=== PATIENT | male | born 1985 | race Two or more races ===

== ENCOUNTER 2016-07-12 14:16 | Emergency (ER) | payer SELFPAY ==
[~2016-07-12] VITALS: Ht 177.8 cm; Wt 74.8 kg
[2016-07-12] MEDS ORDERED: IV NORMAL SALINE 1000ML BAG 1,000 ML IV SCH (16:12)
--- NOTE | 2016-07-12 16:20 | PHYS DOC ---
Past Medical History Past Medical History: Other Additional Past Medical Histor: "SEVERE HEADACHES" Past Surgical History: No Surgical History Alcohol Use: Occasionally Drug Use: None Adult General Chief Complaint Chief Complaint: Neck Pain HPI HPI Patient is a 30 year old male who presents with complaint of neck pain, headache, and temporary loss of vision in right eye. Patient states that this started approximately 12:30 today. Patient states he lost vision for approximately 1 hour. Patient denies darkening of vision but states that he was unable to see any detail out of his right eye. The patient states that currently his vision loss has resolved. Patient has been having pain along the right side of his neck as well as right-sided headache. Patient states that he has had history of headaches and has followed up with a neurologist at [facility]. Patient states that he had an MRI in December 2015 which showed "brain damage" of the right cortex. Patient is unable to identify any causative agent for this and he states that the neurologist did not tell him what caused this. Patient has not had any fevers. Patient had associated nausea but no vomiting with his headache and neck pain. Review of Systems Review of Systems Constitutional: Denies fever or chills [] Eyes: Vision loss now resolved, denies redness or eye pain [] HENT: Denies nasal congestion or sore throat [] Respiratory: Denies cough or shortness of breath [] Cardiovascular: No additional information not addressed in HPI [] GI: Denies abdominal pain, nausea, vomiting, bloody stools or diarrhea [] : Denies dysuria or hematuria [] Musculoskeletal: Neck pain [] Integument: Denies rash or skin lesions [] Neurologic: Headache, left arm numbness currently resolved. [] Current Medications Current Medications Current Medications Medications (Trade) Dose Ordered Sig/Nuvia Start Time Stop Time Status Last Admin Dose Admin Sodium Chloride (Iv Sodium Chloride 0.9% 1000ml Bag) 1,000 ml @ 1,000 mls/hr Q1H 07/12/16 16:12 07/12/16 17:11 DC 07/12/16 16:32 1,000 MLS/HR Allergies Allergies Allergies Coded Allergies Type Severity Reaction Last Updated Verified No Known Drug Allergies 07/12/16 No Physical Exam Physical Exam Constitutional: Well developed, well nourished, no acute distress, non-toxic appearance. [] HENT: Normocephalic, atraumatic, bilateral external ears normal, oropharynx moist, no oral exudates, nose normal. [] Eyes: PERRLA, EOMI, conjunctiva normal, no discharge. [] Neck: Normal range of motion, no tenderness, supple, no stridor. [] Cardiovascular:Heart rate regular rhythm, no murmur [] Lungs & Thorax: Bilateral breath sounds clear to auscultation [] Abdomen: Bowel sounds normal, soft, no tenderness, no masses, no pulsatile masses. [] Skin: Warm, dry, no erythema, no rash. [] Back: No tenderness, no CVA tenderness. [] Extremities: No tenderness, no cyanosis, no clubbing, ROM intact, no edema. [] Neurologic: Alert and oriented X 3, normal motor function, normal sensory function, no focal deficits noted. [] Psychologic: Affect normal, judgement normal, mood normal. [] Current Patient Data Vital Signs Vital Signs Date Time Temp Pulse Resp B/P Pulse Ox O2 Delivery O2 Flow Rate FiO2 07/12/16 17:50 58 16 124/65 99 Room Air 07/12/16 14:54 98.1 98.1 Lab Values Laboratory Tests Test 07/12/16 16:30 07/12/16 17:55 White Blood Count 6.4x10^3/uL (4.0-11.0) Red Blood Count 5.12x10^6/uL (4.30-5.70) Hemoglobin 16.0g/dL (13.0-17.5) Hematocrit 46.8% (39.0-53.0) Mean Corpuscular Volume 91fL (79-100) Mean Corpuscular Hemoglobin 31pg (25-35) Mean Corpuscular Hemoglobin Concent 34g/dL (31-37) Red Cell Distribution Width 13.0% (11.5-14.5) Platelet Count 220x10^3/uL (140-400) Neutrophils (%) (Auto) 63% (31-73) Lymphocytes (%) (Auto) 23% (24-48) L Monocytes (%) (Auto) 12% (0-9) H Eosinophils (%) (Auto) 2% (0-3) Basophils (%) (Auto) 1% (0-3) Neutrophils # (Auto) 4.0x10^3uL (1.8-7.7) Lymphocytes # (Auto) 1.5x10^3/uL (1.0-4.8) Monocytes # (Auto) 0.7x10^3/uL (0.0-1.1) Eosinophils # (Auto) 0.1x10^3/uL (0.0-0.7) Basophils # (Auto) 0.0x10^3/uL (0.0-0.2) Erythrocyte Sedimentation Rate 2 (0-15) Sodium Level 142mmol/L (136-145) Potassium Level 4.0mmol/L (3.5-5.1) Chloride Level 103mmol/L (98-107) Carbon Dioxide Level 31mmol/L (21-32) Anion Gap 8 (6-14) Blood Urea Nitrogen 14mg/dL (8-26) Creatinine 0.9mg/dL (0.7-1.3) Estimated GFR (Cockcroft-Gault) 99.8 Glucose Level 95mg/dL (70-99) Calcium Level 9.5mg/dL (8.5-10.1) Magnesium Level 2.1mg/dL (1.8-2.4) C-Reactive Protein, Quantitative 2.7mg/L (0-3.3) Urine Collection Type Unknown Urine Color Yellow Urine Clarity Clear Urine pH 7.0 Urine Specific [place] 1.010 Urine Protein Negativemg/dL (NEG-TRACE) Urine Glucose (UA) Negativemg/dL (NEG) Urine Ketones (Stick) Negativemg/dL (NEG) Urine Blood Negative (NEG) Urine Nitrite Negative (NEG) Urine Bilirubin Negative (NEG) Urine Urobilinogen Dipstick 0.2mg/dL (0.2 mg/dL) Urine Leukocyte Esterase Negative (NEG) Urine RBC 0/HPF (0-2) Urine WBC 0/HPF (0-4) Urine Squamous Epithelial Cells Occ/LPF Urine Bacteria 0/HPF (0-FEW) Urine Opiates Screen Neg (NEG) Urine Methadone Screen Neg (NEG) Urine Barbiturates Neg (NEG) Urine Phencyclidine Screen Neg (NEG) Urine Amphetamine/Methamphetamine Neg (NEG) Urine Benzodiazepines Screen Neg (NEG) Urine Cocaine Screen Neg (NEG) Urine Cannabinoids Screen Neg (NEG) Urine Ethyl Alcohol Neg (NEG) Laboratory Tests 07/12/16 16:30 Laboratory Tests 07/12/16 16:30 EKG EKG Interpreted by me: Heart rate 63, sinus rhythm, incomplete right bundle branch block, normal axis, no acute ST/T-wave abnormalities present [] Radiology/Procedures Radiology/Procedures [facility] [address] [place] [address] IMAGING REPORT Signed PATIENT: IZAIAH LE ACCOUNT: [id number] : 1985 LOCATION: ER AGE: 30 SEX: M EXAM STATUS: REG ER ORD. PHYSICIAN: NIKOLAI AYALA MD REASON: transient loss of vision in right eye, neck pain, headaches PROCEDURE: DOPPLER CAROTID BILAT Clinical indications: Amaurosis fugax of the right eye. Migraine headaches. Duplex sonography of the cervical portion of both carotid arteries was performed including color flow imaging and spectral waveform analysis with flow velocity measurement and boyer scale evaluation. Right side: Peak systolic flow velocity of the CCA is 86 cm/sec. Peak systolic flow velocity of the ICA is 85 cm/sec. Thus, the ICA/CCA ratio is approximately 1.0. Peak end diastolic flow velocity of the ICA is 32 cm/sec. The peak systolic velocity of the ECA is 103 cm/sec. Left side: Peak systolic flow velocity of the CCA is 87 cm/sec. Peak systolic flow velocity of the ICA is 76 cm/sec. Thus, the ICA/CCA ratio is less than 1.0. Peak end diastolic flow velocity of the ICA is 28 cm/sec. Peak systolic flow velocity of the ECA is 99 cm/sec. No significant plaque formation is identified. Antegrade vertebral flow is seen bilaterally. The measurements were made using the NASCET criteria. Impression:No significant plaque formation is identified within the cervical portion of either carotid artery. DICTATED and SIGNED BY: BETINA HALL MD DATE: 07/12/161727 CC: NIKOLAI AYALA MD; UNKNOWN PCP NAME ~ [facility] [address] [place] [address] IMAGING REPORT Signed PATIENT: IZAIAH LE ACCOUNT: [id number] : 1985 LOCATION: ER AGE: 30 SEX: M EXAM STATUS: REG ER ORD. PHYSICIAN: NIKOLAI AYALA MD REASON: headache, vision loss, history of "brain damage" PROCEDURE: HEAD WO CONTRAST PROCEDURE CT head without contrast HISTORY Headache, right vision loss since 06/02 today, neck pain TECHNIQUE Noncontrast CT imaging was performed of the head. Exposure: One or more of the following individualized dose reduction techniques were utilized for this exam: 1. Automated exposure control. 2. Adjustment of the mA and/or kV according to patient size. 3. Use of iterative reconstruction technique. COMPARISON August 29, 2015 [facility] FINDINGS No acute intracranial hemorrhage is identified. There is no intra-axial mass effect, midline shift, extra-axial fluid collection. Ventricles, sulci, and cisterns are within normal limits in size and configuration. No acute calvarial abnormality is identified. Visualized paranasal sinuses and mastoid air cells are aerated. IMPRESSION No acute intracranial abnormality is identified. Electronically signed by: German Diana MD (Jul 12, 2016 17:09:32) DICTATED and SIGNED BY: SHERRELL DIANA MD DATE: 07/12/16 6745 CC: NIKOLAI AYALA MD; UNKNOWN PCP NAME ~ [] Course & Med Decision Making Course & Med Decision Making Pertinent Labs and Imaging studies reviewed. (See chart for details) Patient's lab and imaging do not show any remarkable findings at this time. The patient's vision appears normal and patient's symptoms are completely resolved. Patient did not experience any recurrent symptoms in the emergency department. The patient notes that he had a brain MRI with and without contrast in December 2015. I did consult Dr. Ewing and discuss the case with her. She recommended that the patient follow-up with his neurologist within the next week as patient will likely need to have a repeat brain MRI given the development of new symptoms. The patient's differential diagnosis included CVA though this is appearing less likely due to complete resolution of symptoms. The patient had normal ESR which would suggest against temporal arteritis. The patient's symptoms may be consistent with a typical migraine phenomenon. I did recommend that the patient return to the emergency department for any worsening or recurrence of symptoms. Patient voiced understanding and in agreement with treatment plan. Dragon Disclaimer Dragon Disclaimer This electronic medical record was generated, in whole or in part, using a voice recognition dictation system. Departure Departure Impression: Primary Impression: Headache Additional Impression: Amaurosis fugax of right eye Disposition: 01 HOME, SELF-CARE Condition: IMPROVED Referrals: UNKNOWN PCP NAME (PCP) Patient Instructions: Amaurosis Fugax, General Headache Without Cause Additional Instructions: Follow-up with your neurologist in the next 5-7 days. It is recommended that you have a repeat brain MRI within the next week. Return to the emergency department for any worsening symptoms. Problem Qualifiers Primary Impression: Headache Headache type: unspecified Headache chronicity pattern: episodic headache Intractability: not intractable Qualified Code: R51 - Headache NIKOLAI AYALA MD Jul 12, 2016 16:20
[2016-07-12 16:42] LABS: BASO % 1 % (0-3); EOS % 2 % (0-3); HEMATOCRIT 46.8 % (39.0-53.0); LYMPH # 1.5 x10^3/uL (1.0-4.8); LYMPH % 23 % (24-48); MEAN CORPUSCULAR HEMOGLOBIN 31 pg (25-35); MEAN CORPUSCULAR HGB CONC 34 g/dL (31-37); MEAN CORPUSCULAR VOLUME 91 fL (79-100); MONO % 12 % (0-9); NEUT % 63 % (31-73); PLATELET COUNT 220 x10^3/uL (140-400); RED BLOOD COUNT 5.12 x10^6/uL (4.30-5.70); WHITE BLOOD COUNT 6.4 x10^3/uL (4.0-11.0)
[2016-07-12 17:01] LABS: CALCIUM 9.5 mg/dL (8.5-10.1); CREATININE 0.9 mg/dL (0.7-1.3); GFR 99.8
[2016-07-12 17:04] LABS: C-REACTIVE PROTEIN 2.7 mg/L (0-3.3); MAGNESIUM 2.1 mg/dL (1.8-2.4)
--- NOTE | 2016-07-12 17:10 | RAD ---
PROCEDURE CT head without contrast HISTORY Headache, right vision loss since 06/02 today, neck pain TECHNIQUE Noncontrast CT imaging was performed of the head. Exposure: One or more of the following individualized dose reduction techniques were utilized for this exam: 1. Automated exposure control. 2. Adjustment of the mA and/or kV according to patient size. 3. Use of iterative reconstruction technique. COMPARISON August 29, 2015 [facility] FINDINGS No acute intracranial hemorrhage is identified. There is no intra-axial mass effect, midline shift, extra-axial fluid collection. Ventricles, sulci, and cisterns are within normal limits in size and configuration. No acute calvarial abnormality is identified. Visualized paranasal sinuses and mastoid air cells are aerated. IMPRESSION No acute intracranial abnormality is identified. Electronically signed by: German Loyd MD (Jul 12, 2016 17:09:32)
--- NOTE | 2016-07-12 17:33 | RAD ---
Clinical indications: Amaurosis fugax of the right eye. Migraine headaches. Duplex sonography of the cervical portion of both carotid arteries was performed including color flow imaging and spectral waveform analysis with flow velocity measurement and boyer scale evaluation. Right side: Peak systolic flow velocity of the CCA is 86 cm/sec. Peak systolic flow velocity of the ICA is 85 cm/sec. Thus, the ICA/CCA ratio is approximately 1.0. Peak end diastolic flow velocity of the ICA is 32 cm/sec. The peak systolic velocity of the ECA is 103 cm/sec. Left side: Peak systolic flow velocity of the CCA is 87 cm/sec. Peak systolic flow velocity of the ICA is 76 cm/sec. Thus, the ICA/CCA ratio is less than 1.0. Peak end diastolic flow velocity of the ICA is 28 cm/sec. Peak systolic flow velocity of the ECA is 99 cm/sec. No significant plaque formation is identified. Antegrade vertebral flow is seen bilaterally. The measurements were made using the NASCET criteria. Impression:No significant plaque formation is identified within the cervical portion of either carotid artery.
[2016-07-12 17:50] VITALS: BP 124/65
[2016-07-12 18:19] LABS: BILIRUBIN,URINE NEGATIVE (NEG); GLUCOSE,URINE NEGATIVE (NEG); NITRITE,URINE NEGATIVE (NEG); PROTEIN,URINE NEGATIVE (NEG-TRACE); UROBILINOGEN,URINE 0.2 mg/dL (0.2 mg/dL)
[2016-07-12 18:27] LABS: BACTERIA,URINE 0 /HPF (0-FEW); RBC,URINE 0 /HPF (0-2); SQUAMOUS EPITHELIAL CELL,UR OCC /LPF; WBC,URINE 0 /HPF (0-4)
[2016-07-12 18:32] LABS: BARBITURATES NEG (NEG); BENZODIAZEPINES NEG (NEG); CANNABINOIDS NEG (NEG); COCAINE NEG (NEG); METHADONE NEG (NEG); OPIATES NEG (NEG); PHENCYCLIDINE NEG (NEG)
[2016-07-12 18:36] LABS: ETHANOL, URINE NEG (NEG)
--- NOTE | 2016-07-13 06:16 | EKG ---
[facility] [address] [place] [address] Test Date: 2016-07-12 Test Time: 16:25:57 Pat Name: IZAIAH LE Department: Room: Gender: M [employer]: : 1985 Requested By: NIKOLAI AYALA Order Number: [id number] Reading MD: Jamia Loaiza Measurements Intervals [place] Rate: 63 P: 19 WI: 152 QRS: 59 QRSD: 94 T: 28 QT: 376 QTc: 388 Interpretive Statements SINUS RHYTHM INCOMPLETE RIGHT BUNDLE BRANCH BLOCK RI6.01 Unconfirmed report No previous ECG available for comparison Electronically Signed On 07-16-2016 15:37:15 GERM DRIER by Jamia Loaiza
== END 2016-07-12 18:54 | disposition home or self-care (01) ==
LOC: ER 14:20
DX: R51 Headache (principal); G45.3 Amaurosis fugax; M54.2 Cervicalgia; Z86.69 Personal history of other diseases of the nervous system and sense organs
CPT/HCPCS: 36415; 70450; 80048; 81001; 83735; 85027; 85651; 86140; 93005; 93880; 96360; 99285; G0481; J7030